=== PATIENT | male | born 1960 | race Caucasian/White ===

== ENCOUNTER 2020-12-19 10:14 | Day surgery (SDC) | payer BC ==
--- NOTE | 2020-12-06 17:09 | RAD REPORT ---
EXAM DESCRIPTION: US - Scrotum Testicles - 12/06/2020 4:43 pm CLINICAL HISTORY: SCROTAL PAIN COMPARISON: No comparisons FINDINGS: Testicular tissue is homogeneous. No focal testicular mass lesions. Doppler evaluation cadence ws blood flow in each testicle. Patient has very large bilateral hydroceles. No epididymis enlargement or mass lesions seen. No varic ocele. IMPRESSION: Large bilateral hydroceles.
--- NOTE | 2020-12-15 11:41 | RAD REPORT ---
EXAM DESCRIPTION: RAD - Chest Pa And Lat (2 Views) - 12/15/2020 11:21 am CLINICAL HISTORY: PREOP Chest pain. COMPARISON: No comparisons FINDINGS: The lungs are clear. The heart is normal in size. No displaced fractures. IMPRESSION: No acute or concerning finding suspected.
[2020-12-15 11:42] LABS: Absolute Lymphocytes (CBC) 1.4 K/uL (0.7-4.9); Basophils % 0.7 % (0-1.3); Hematocrit 48.7 % (39.6-49.0); Lymphocytes % 24.9 % (15.3-44.8); MPV 8.5 fL (7.6-11.3); RBC Red Blood Cell Count 5.09 M/uL (4.33-5.43)
[2020-12-15 11:45] LABS: Potassium 4.1 mmol/L (3.5-5.1); Protime INR 1.1
--- NOTE | 2020-12-15 15:02 | EKG ---
Test Date: 2020-12-15 Test Time: 10:01:03 Pediatric Nephrologist: RADHA MEASUREMENT RESULTS: Intervals: Rate: 60 FL: 138 QRSD: 84 QT: 400 QTc: 400 [place]: P: 67 FL: 138 QRS: 56 T: 51 INTERPRETIVE STATEMENTS: Normal sinus rhythm Normal ECG No previous ECG available for comparison Electronically Signed On 12-15-20 15:01:46 CDT by Bill Dupont
[2020-12-19] MEDS ORDERED: Ringers Lactate 1,000 ML IV ONE ×2 (10:53→13:20)
[2020-12-19] MEDS ORDERED: CEFAZOLIN/SWI 1gm 2 GM/20 ML SYR ONE (10:53)
[2020-12-19] MEDS ORDERED: CELECOXIB 100 MG CAPSULE ONE (11:14)
[2020-12-19] MEDS ORDERED: ACETAMINOPHEN 500 MG TAB ONE (11:15)
[2020-12-19] MEDS ORDERED: FENTANYL CITR 100 MCG/2 ML ONE (12:30)
[2020-12-19] MEDS ORDERED: propofoL 200 MG/20 ML VIAL IV ONE (12:30)
[2020-12-19] MEDS ORDERED: MIDAZOLAM HCL 2 MG/2 ML INJ ONE (12:30)
[2020-12-19] MEDS ORDERED: dexAMETHasone 10 MG/ML VIAL ONE (12:30)
[2020-12-19] MEDS ORDERED: LIDOCAINE 2% MPF 5 ML VIAL ONE (12:31)
[2020-12-19] MEDS ORDERED: ONDANSETRON 4 MG/2 ML VIAL ONE (12:31)
[2020-12-19] MEDS ORDERED: KETOROLAC 30 MG/ML INJ ONE (12:31)
[2020-12-19] MEDS ORDERED: BUPIVACAINE 0.25% PF 30 ML VIAL ONE (12:56)
[2020-12-19] MEDS ORDERED: BACITRACIN OINTMENT 15 GM TUBE TOP ONE (12:56)
[2020-12-19] MEDS ORDERED: GLYCOPYRROLATE 0.2 MG/ML SYR ONE (14:09)
[2020-12-19] MEDS: HYDROMORPHONE HCL 1 MG/ML INJ ONE ×2 (14:41→14:47)
[2020-12-19] MEDS ORDERED: MEPERIDINE HCL 25 MG/ML SYR ONE (15:08)
[2020-12-19 15:12] VITALS: BP 124/92; TEMP 96.7; O2SAT 94
[2020-12-19] MEDS ORDERED: CODEINE 30MG/APAP 300MG TAB PO ONE (15:26)
[2020-12-19] MEDS ORDERED: CODEINE 30MG/APAP 300MG TAB ONE (15:43)
--- NOTE | 2020-12-19 16:22 | OP ---
Surgeon: SALOME MARTINEZ Preoperative Diagnosis: Massive right hydrocele. Postoperative Diagnosis: Massive right hydrocele. Principle Procedure: Jaboulay hydrocelectomy. Indication For Procedure: Mr. Valerio presented to the Urology Clinic with a large and significantly u ncomfortable right hydrocele that had increased in size over the last year. He underwent a scrotal u ltrasound verifying the absence of an intratesticular mass or lesion and simply the presence of a lar ge right-sided and smaller left-sided hydrocele. As a result, he was counseled on options to include aspiration and sclerosis versus formal hydrocelectomy. He elected the lateral approach. Procedure In Detail: The patient was consented in the preoperative holding area before being transfe rred to the operative suite where general anesthesia was induced. He was given Ancef IV antimicrobia l prophylaxis and pneumo boots were provided for DVT prophylaxis. He was supine on the operative tab le and padded and secured to the table appropriately. His genitalia were prepped using Betadine and draped in standard fashion. The case was begun by instilling 0.25% Marcaine subcutaneously in a Lang er line incision in the left hemiscrotum superiorly. An incision was then made approximately 3 cm in length and deepened through the subcutaneous tissues. Electrocautery was used to divide the dartos layers down to the level of the tunica vaginalis. Sharp and blunt dissection with electrocautery as necessary was employed to further divide any dartos attachments to the parietal layer of tunica vagin domingo and expose the entire anterolateral surface of the hydrocele sac. I then incised the anterior c omponent of the tunica vaginalis and we aspirated several 100 mL of fluid from within to decompress t he sac significantly. I was then able to deliver the remainder of the sac via the incision made, and I continued to sharply dissect the remainder of the dartos and vascular attachments from the tunica vaginalis posteriorly. Once this was done, I divided the tunica vaginalis anteriorly to the level of the cord structures. I then folded the hydrocele sac behind the cord structures and removed a signi ficant quantity of it and sent it for pathologic analysis. The remaining sac was plicated behind the cord structures using 3-0 Vicryl suture in a running and every third locking fashion. Once this was completed and was hemostatic, I then performed a careful search for any bleeding vessels along the r emainder of the intrascrotal contents. Once this was completely fulgurated, I then copiously irrigat ed the testis and the intrascrotal sac. I then closed the dartos layers using 3-0 Vicryl in a runnin g fashion. The skin and subcutaneous tissues were closed using 3-0 chromic dipped in bacitracin. A fluff gauze was applied after bacitracin was applied to the incision, and a scrotal support was then placed on him. He was then awakened from general anesthesia, transferred to a stretcher and then tra nsferred to the recovery room in good condition. Complications: None. Discharge Disposition: He will follow up in the Urology Clinic in approximately 2 weeks with nurse Cecilio yanez, for interval assessment. [facility]. Care instructions were provided for the patient and his or a female partner or friend in detail. BETH/MODL Voice ID: [id number] Report ID: [id number]
== END 2020-12-19 15:40 | disposition home or self-care (01) ==
LOC: OR 10:14
PROVIDERS: ATTEND Urology
PROC: 0VB60ZZ Excision of Right Tunica Vaginalis, Open Approach (ICD-10-PCS; principal; 2020-12-19 11:45)
DX: N43.3 Hydrocele, unspecified (principal); Z20.822 Contact with and (suspected) exposure to COVID-19
CPT/HCPCS: 93005; 85025; 80048; 36415; 85610; 88302; 71046; 76870; 55040; J2704; J2250; J3010; J1100; J2175; J1170; J0690; J7120 ×2; J2405; U0002

== ENCOUNTER 2021-12-15 12:31 | Emergency (ER) | payer BC ==
--- OUTSIDE RECORDS SUMMARY | 2021-12-15 12:37 | XMS REPORT | Continuity of Care Document ---
:1960 Author Organization [facility] t Address [address] [place] [address] Care Team Providers Name Role Phone Unavailable Unavailable Unavailable Problems This patient has no known problems. Allergies, Adverse Reactions, Alerts This patient has no known allergies or adverse reactions. Medications This patient has no known medications. Immunizations Ordered Immunization Filled Immunization Date Status Commen ts Source Name Name Moderna COVID-19 Moderna COVID-19 2021-01-08 Completed Vaccine Vaccine 00:00:00 Moderna COVID-19 Moderna COVID-19 2020-12-11 Completed Vaccine Vaccine 00:00:00 Procedures This patient has no known procedures. Encounters Start End Encounter Admission Attending Care Care Encounter Source Date/Time Date/Time Type Type Clinicians Facility Department ID 2021-01-08 2021-01-08 Outpatient [facility] [id number] [facility] 00:00:00 00:00:00 V 2020-12-11 2020-12-11 Outpatient [facility] [id number] [facility] 00:00:00 00:00:00 V Results This patient has no known results.
[2021-12-15] MEDS ORDERED: NA CHLORIDE 0.9% 1,000 ML ONE (13:25)
[2021-12-15 13:31] LABS: Urine Blood 3+ (Negative); Urine Glucose Negative (Negative); Urine Protein 2+ (Negative); Urine pH 8.5 (5.0-7.0)
[2021-12-15 13:45] LABS: Absolute Lymphocytes (CBC) 1.1 K/uL (0.7-4.9); Hematocrit 47.6 % (39.6-49.0); Lymphocytes % 7.4 % (15.3-44.8); RBC Red Blood Cell Count 5.11 M/uL (4.33-5.43)
--- NOTE | 2021-12-15 13:58 | RAD REPORT ---
EXAM DESCRIPTION: CTAbdomen Pelvis W Contrast - 12/15/2021 1:51 pm CLINICAL HISTORY: HEMATURIA COMPARISON: No comparisons TECHNIQUE: CT of the abdomen and pelvis was performed. All CT scans are performed using dose optimization technique as appropriate and may include automated exposure control or mA/KV adjustment according to patient size. FINDINGS: Lower chest: No acute abnormality. Liver: No acute abnormality or suspicious lesions. Biliary: No biliary ductal dilatation. Stomach: No significant focal abnormality. Duodenum: No significant focal abnormality. Pancreas: No significant abnormality. Spleen: No significant abnormality. Adrenal: No suspicious lesions. Kidney/ureter: No hydronephrosis. Too small to characterize and/or benign appearing renal lesions are noted. Retroperitoneum: No retroperitoneal adenopathy. Vascular: No aneurysm. Bowel: No significant focal abnormality. Normal appendix Peritoneum: No ascites or free air. Fat containing right inguinal hernia. Bladder: Bladder wall thickening and enhancement. Reproductive: Coarse prostatic calcifications. There is a cystic collection within prostate. This may be a prior TURP defect. This measures 2 cm Bones: No acute fracture. Other: n/a IMPRESSION: Bladder wall thickening hyperenhancement concerning for cystitis. Correlate with urinaly sis. No renal or ureteral calculi identified. Prostatomegaly with cystic collection in the prostate t hat may be from a prior TURP defect.
[2021-12-15 14:12] LABS: Urine Bacteria 20-50 /HPF (NONE SEEN)
[2021-12-15 14:27] LABS: Albumin 3.7 g/dL (3.4-5.0); Bilirubin Total 0.6 mg/dL (0.2-1.0); Potassium 4.1 mmol/L (3.5-5.1)
[2021-12-15] MEDS ORDERED: MORPHINE 4 MG/ML SYR ONE (14:31)
[2021-12-15] MEDS ORDERED: ONDANSETRON 4 MG/2 ML VIAL ONE (14:31)
[2021-12-15] MEDS ORDERED: CEFTRIAXONE 1000 MG/VIAL ONE (15:27)
[2021-12-15] MEDS ORDERED: NA CHLORIDE 0.9% 50 ML ONE (15:28)
--- NOTE | 2021-12-15 15:47 | ER ---
Nurse's Notes [facility] Name: Dario Valerio Age: 61 yrs Sex: Male : 1960 Arrival Date: 12/15/2021 Time: 12:33 Bed 19 Private MD: Diagnosis: Acute cystitis with hematuria Presentation: 12/15 12:54 Chief complaint: Patient states: "Last night I had a few twisted teas and through out ab2 the night I felt like I had to pee all night, but I was just trickling. Well this morning its bloody and full of clots." Pt states he has burning on urination and frequency. Coronavirus screen: Vaccine status: Patient reports receiving the 2nd dose of the covid vaccine. Client denies travel out of the [place] in the last 14 days. At this time, the client does not indicate any symptoms associated with coronavirus-19. Ebola Screen: Patient negative for fever greater than or equal to 101.5 degrees Fahrenheit, and additional compatible Ebola Virus Disease symptoms Patient denies exposure to infectious person. Patient denies travel to an Ebola-affected area in the 21 days before illness onset. No symptoms or risks identified at this time. Initial Sepsis Screen: Does the patient meet any 2 criteria? HR > 90 bpm. No. Patient's initial sepsis screen is negative. Does the patient have a suspected source of infection? No. Patient's initial sepsis screen is negative. Risk Assessment: Do you want to hurt yourself or someone else? Patient reports no desire to harm self or others. Onset of symptoms is unknown. 12:54 Method Of Arrival: Ambulatory ab2 12:54 Acuity: ETHAN 3 ab2 Triage Assessment: 13:00 General: Appears in no apparent distress. uncomfortable, Behavior is calm, cooperative, ab2 appropriate for age. Pain: Complains of pain in pelvis. : Urine is rosalva blood, Reports burning with urination, pain urgency, urinary frequency. Historical: - Allergies: 12:59 No Known Allergies; ab2 - PMHx: 12:59 Skin cancer; ab2 - Immunization history:: Adult Immunizations up to date. - Social history:: Smoking status: Patient reports the use of cigarette tobacco products, smokes one pack cigarettes per day. Screenin:31 Abuse screen: Denies threats or abuse. Nutritional screening: No deficits noted. jd3 Tuberculosis screening: No symptoms or risk factors identified. Fall Risk Ambulatory Aid- None/Bed Rest/Nurse Assist (0 pts). Gait- Normal/Bed Rest/Wheelchair (0 pts) Mental Status- Oriented to own ability (0 pts). Total Harper Fall Scale indicates No Risk (0-24 pts). Assessment: 13:29 General: Appears in no apparent distress. uncomfortable, Behavior is calm, cooperative, jd3 appropriate for age. Pain: Complains of pain in suprapubic area Quality of pain is described as sharp. Neuro: Level of Consciousness is awake, alert, obeys commands, Oriented to person, place, time, situation. Cardiovascular: Denies chest pain, Capillary refill < 3 seconds Patient's skin is warm and dry. Respiratory: Airway is patent Respiratory effort is even, unlabored, Respiratory pattern is regular, symmetrical, Denies cough, shortness of breath. GI: No signs and/or symptoms were reported involving the gastrointestinal system. : Reports pain with urination. blood in urine with clots. EENT: No signs and/or symptoms were reported regarding the EENT system. Derm: Skin is intact, Skin is dry, Skin is normal, Skin temperature is warm. Musculoskeletal: Circulation, motion, and sensation intact. Range of motion: intact in all extremities. 14:35 Reassessment: Patient appears in no apparent distress at this time. Patient and/or jd3 family updated on plan of care and expected duration. Pain level reassessed. Patient is alert, oriented x 3, equal unlabored respirations, skin warm/dry/pink. 15:30 Reassessment: Patient appears in no apparent distress at this time. Patient and/or jd3 family updated on plan of care and expected duration. Pain level reassessed. Patient is alert, oriented x 3, equal unlabored respirations, skin warm/dry/pink. Patient states feeling better. 16:05 Reassessment: Patient appears in no apparent distress at this time. Patient and/or jd3 family updated on plan of care and expected duration. Pain level reassessed. Patient is alert, oriented x 3, equal unlabored respirations, skin warm/dry/pink. Patient states feeling better. Vital Signs: 12:54 BP 116 / 88; Pulse 121; Resp 17; Temp 99.9(O); Pulse Ox 98% on R/A; Weight 78.02 kg; ab2 Height 5 ft. 10 in. (177.80 cm); Pain 8/10; 14:34 BP 129 / 92; Pulse 91; Resp 17 S; Pulse Ox 96% on R/A; jd3 15:31 BP 122 / 81; Pulse 94; Resp 16 S; Pulse Ox 97% on R/A; jd3 12:54 Body Mass Index 24.68 (78.02 kg, 177.80 cm) ab2 ED Course: 12:33 Patient arrived in ED. rg4 12:59 Triage completed. ab2 13:00 Arm band placed on right wrist. ab2 13:01 Roly Mcnally NP is PHCP. pm1 13:01 Arsen Acosta MD is Attending Physician. pm1 13:01 Kalyan Rodriguez RN is Primary Nurse. jd3 13:25 Initial lab(s) drawn, by ms, sent to lab. Inserted saline lock: 20 gauge in right 3 antecubital area, using aseptic technique. Blood collected. 13:31 Patient has correct armband on for positive identification. Bed in low position. Call jd3 light in reach. Side rails up X 1. Adult w/ patient. 13:31 Inserted saline lock: 20 gauge in right antecubital area, using aseptic technique. jd3 Blood collected. placed by [employer] appliance service technician. 13:32 Urine Microscopic Only Sent. 3 13:52 CT Abd/Pelvis - IV Contrast Only In Process Unspecified. EDMS 16:05 No provider procedures requiring assistance completed. IV discontinued, intact, jd3 bleeding controlled, No redness/swelling at site. Pressure dressing applied. Administered Medications: 13:29 Drug: NS 0.9% 1000 ml Route: IV; Rate: 1 bolus; Site: right antecubital; jd3 14:29 Follow up: Response: No adverse reaction; IV Status: Completed infusion jd3 14:34 Drug: morphine 4 mg Route: IVP; Site: right antecubital; jd3 15:30 Follow up: Response: No adverse reaction; RASS: Alert and Calm (0) jd3 14:34 Drug: Zofran (Ondansetron) 4 mg Route: IVP; Site: right antecubital; jd3 15:30 Follow up: Response: No adverse reaction jd3 15:30 Drug: Rocephin (cefTRIAXone) 1 grams Route: IV; Rate: calculated rate; Site: right [facility] antecubital; 16:06 Follow up: Response: No adverse reaction; IV Status: Completed infusion jd3 Outcome: 15:47 Discharge ordered by . pm1 16:05 Discharged to home ambulatory, with family. jd3 16:05 Condition: stable 16:05 Discharge instructions given to patient, Instructed on discharge instructions, follow up and referral plans. medication usage, Demonstrated understanding of instructions, follow-up care, medications, Prescriptions given X 2. 16:06 Patient left the ED. jd3 Signatures: Dispatcher [employer] EDMS Roly Mcnally NP FITNESS TEACHER pm1 Marie Franco Tatyana Osullivan 3 Kalyan Rodriguez RN RN jd3 Jefferson Holley2
--- NOTE | 2021-12-15 15:47 | EDPHYS ---
Physician Documentation [facility] Name: Dario Valerio Age: 61 yrs Sex: Male : 1960 Arrival Date: 12/15/2021 Time: 12:33 Bed 19 Private MD: ED Physician Arsen Acosta HPI: 12/15 13:12 This 61 yrs old Male presents to ER via Ambulatory with complaints of Blood In Urine, pm1 Fever. 13:12 The patient presents with urinary symptoms, burning with urination and suprapubic pain. pm1 Onset: The symptoms/episode began/occurred yesterday. Modifying factors: The symptoms are alleviated by nothing, the symptoms are aggravated by urinating. Associated signs and symptoms: Pertinent positives: abdominal pain, fever, Pertinent negatives: diarrhea, vomiting. Severity of symptoms: in the emergency department the symptoms are actually worse. The patient has not experienced similar symptoms in the past. The patient has not recently seen a physician. Historical: - Allergies: 12:59 No Known Allergies; ab2 - PMHx: 12:59 Skin cancer; ab2 - Immunization history:: Adult Immunizations up to date. - Social history:: Smoking status: Patient reports the use of cigarette tobacco products, smokes one pack cigarettes per day. ROS: 13:12 ENT: Negative for injury, pain, and discharge, Cardiovascular: Negative for chest pain, pm1 palpitations, and edema, Respiratory: Negative for shortness of breath, cough, wheezing, and pleuritic chest pain. 13:12 Back: Negative for injury and pain. 13:12 MS/Extremity: Negative for injury and deformity, Skin: Negative for injury, rash, and discoloration, Neuro: Negative for headache, weakness, numbness, tingling, and seizure. 13:12 Constitutional: Positive for fever, Negative for poor PO intake. 13:12 Abdomen/GI: Positive for abdominal pain, of the suprapubic area, Negative for nausea, vomiting, and diarrhea, constipation. 13:12 : Positive for hematuria, burning with urination, Negative for flank pain. 13:12 All other systems are negative. Exam: 13:12 Constitutional: This is a well developed, well nourished patient who is awake, alert, pm1 and in no acute distress. Head/Face: Normocephalic, atraumatic. 13:12 Back: No spinal tenderness. No costovertebral tenderness. Full range of motion. Skin: Warm, dry with normal turgor. Normal color with no rashes, no lesions, and no evidence of cellulitis. MS/ Extremity: Pulses equal, no cyanosis. Neurovascular intact. Full, normal range of motion. 13:12 Cardiovascular: Exam negative for acute changes, Rate: tachycardic, Rhythm: regular, Pulses: no pulse deficits are appreciated. 13:12 Respiratory: Exam negative for acute changes, the patient does not display signs of respiratory distress, Respirations: normal, Breath sounds: are clear throughout. 13:12 Abdomen/GI: Inspection: abdomen appears normal, Palpation: soft, in all quadrants, mild abdominal tenderness, in the suprapubic area. 13:12 Neuro: Exam negative for acute changes, Orientation: is normal, Mentation: is normal, Motor: is normal, moves all fours. Vital Signs: 12:54 BP 116 / 88; Pulse 121; Resp 17; Temp 99.9(O); Pulse Ox 98% on R/A; Weight 78.02 kg; ab2 Height 5 ft. 10 in. (177.80 cm); Pain 8/10; 14:34 BP 129 / 92; Pulse 91; Resp 17 S; Pulse Ox 96% on R/A; jd3 15:31 BP 122 / 81; Pulse 94; Resp 16 S; Pulse Ox 97% on R/A; jd3 12:54 Body Mass Index 24.68 (78.02 kg, 177.80 cm) ab2 MDM: 13:02 Patient medically screened. pm1 14:25 ED course: patient decided that he would like to have pain medication now. Refused pain pm1 medication on initial evaluation. 15:31 Data reviewed: vital signs. Data interpreted: Pulse oximetry: on room air is 96 %. pm1 Interpretation: normal. Counseling: I had a detailed discussion with the patient and/or guardian regarding: the historical points, exam findings, and any diagnostic results supporting the discharge/admit diagnosis, lab results, radiology results, the need for outpatient follow up, to return to the emergency department if symptoms worsen or persist or if there are any questions or concerns that arise at home. 12/15 13:10 Order name: CBC with Diff pm1 12/15 13:10 Order name: CMP; Complete Time: 15:09 pm1 12/15 13:10 Order name: Lipase; Complete Time: 15:09 pm1 12/15 13:10 Order name: Urine Microscopic Only; Complete Time: 14:26 pm1 12/15 13:31 Order name: Urine Dipstick-Ancillary; Complete Time: 13:39 EDMS 12/15 14:16 Order name: Urine Culture EDNM 12/15 13:10 Order name: CT Abd/Pelvis - IV Contrast Only; Complete Time: 14:26 pm1 12/15 13:10 Order name: IV Saline Lock; Complete Time: 13:29 pm1 12/15 13:10 Order name: Labs collected and sent; Complete Time: 13:29 pm1 12/15 13:10 Order name: Urine Dipstick-Ancillary (obtain specimen); Complete Time: 13:32 pm1 Administered Medications: 13:29 Drug: NS 0.9% 1000 ml Route: IV; Rate: 1 bolus; Site: right antecubital; jd3 14:29 Follow up: Response: No adverse reaction; IV Status: Completed infusion jd3 14:34 Drug: morphine 4 mg Route: IVP; Site: right antecubital; jd3 15:30 Follow up: Response: No adverse reaction; RASS: Alert and Calm (0) jd3 14:34 Drug: Zofran (Ondansetron) 4 mg Route: IVP; Site: right antecubital; jd3 15:30 Follow up: Response: No adverse reaction jd3 15:30 Drug: Rocephin (cefTRIAXone) 1 grams Route: IV; Rate: calculated rate; Site: right jd3 antecubital; 16:06 Follow up: Response: No adverse reaction; IV Status: Completed infusion jd3 Disposition Summary: 12/15/21 15:47 Discharge Ordered Location: Home pm1 Problem: new pm1 Symptoms: have improved pm1 Condition: Stable pm1 Diagnosis - Acute cystitis with hematuria pm1 Followup: pm1 - With: Emergency Department - When: As needed - Reason: Worsening of condition Followup: pm1 - With: Private Physician - When: 2 - 3 days - Reason: Recheck today's complaints, Continuance of care, Re-evaluation by your physician Discharge Instructions: - Discharge Summary Sheet pm1 - Urinary Tract Infection, Adult pm1 Forms: - Medication Reconciliation Form pm1 - Thank You Letter pm1 - Antibiotic Education pm1 - Prescription Opioid Use pm1 - Work release form jd3 Prescriptions: - Bactrim DS 800-160 mg Oral Tablet - take 1 tablet by ORAL route every 12 hours for 14 days; 28 tablet; Refills: 0, pm1 Product Selection Permitted - Pyridium 200 mg Oral Tablet - take 1 tablet by ORAL route every 8 hours for 3 days; 9 tablet; Refills: 0, pm1 Product Selection Permitted Addendum: 12/19/2021 07:06 Co-signature as Attending Physician, Arsen Acosta MD I agree with the assessment and c rhodes plan of care. Signatures: Dispatcher [employer] EDArsen Rose MD MD cha Marinas, Patrick, PASTING INSPECTOR PASTING INSPECTOR pm1 Kalyan Rodriguez RN RN jd3 Jefferson Holley ab2 Corrections: (The following items were deleted from the chart) 12/15 15:51 15:47 UTI/ Urinary tract infection, site not specified pm1 pm1
[2021-12-15 16:58] VITALS: TEMP 99.9
[2021-12-15 17:00] VITALS: BP 122/81; O2SAT 97
[2021-12-15 17:14] LABS: Blood Morphology Comment NOT SEEN (NOT SEEN); Platelet Estimate ADEQ; White Blood Cell Scan OK (OK)
== END 2021-12-15 16:06 | disposition home or self-care (01) ==
LOC: ER 12:31
DX: N30.01 Acute cystitis with hematuria (principal); F17.210 Nicotine dependence, cigarettes, uncomplicated
CPT/HCPCS: 96365; 96361; 87088; 85025; 87086; 36415; 82565; 83690; 80053; 74177; 96375; 99284; Q9967; J7030; J2405; 81003; 81015